=== PATIENT | male | born 1965 | race Caucasian/White ===

== ENCOUNTER 2018-03-08 10:49 | Emergency (ER) | payer OTHER ==
[2018-03-08 11:04] VITALS: TEMP 97.6; O2SAT 98
--- NOTE | 2018-03-08 11:51 | RAD ---
Date of service: 03/08/2018 PROCEDURE: Right Index finger radiographs. HISTORY: puncture with glass, r/o FB COMPARISON: None. TECHNIQUE: AP radiograph of the right hand, as well as spot oblique and lateral images of index finger were obtained. FINDINGS: RIGHT INDEX FINGER: An 2 x 1 mm tiny osseous avulsion fracture fragment is volarly displaced - 2nd proximal interphalangeal joint level- specific donor site -not appreciated JOINTS: Normal. SOFT TISSUES: Regional soft tissue swell OTHER FINDINGS: None. IMPRESSION: An 2 x 1 mm tiny osseous avulsion fracture fragment is volarly displaced - 2nd proximal interphalangeal joint level- specific donor site -not appreciated
[2018-03-08] MEDS ORDERED: Amoxicillin-Clav 875-125 mg Tab PO STA (12:11)
--- NOTE | 2018-03-08 12:11 | C.PDOC ---
History Of Present Illness 52 y/o male presents to the ED for evaluation of a wound to the right 2nd digit , sustained this morning. Patient states he was at work when the finger was punctured with glass. He complains of swelling and redness near the site and reports difficulty when bending the finger. Tetanus is up to date. Otherwise patient denies any numbness, tingling, or focal weakness. Time Seen by Provider: 03/08/18 11:13 Chief Complaint (Nursing): Upper Extremity Problem/Injury History Per: Patient History/Exam Limitations: no limitations Onset/Duration Of Symptoms: Hrs Current Symptoms Are (Timing): Still Present Past Medical History Reviewed: Historical Data, Nursing Documentation, Vital Signs Vital Signs: Last Vital Signs Temp 97.6 F 03/08/18 11:02 Pulse 65 03/08/18 11:02 Resp 18 03/08/18 11:02 BP 117/78 03/08/18 11:02 Pulse Ox 98 03/08/18 12:19 - Medical History PMH: No Chronic Diseases Other Surgeries: Left hand surgery Family History: States: Unknown Family Hx - Social History Hx Tobacco Use: No (Quit 3 years ago) Hx Alcohol Use: No Hx Substance Use: No - Immunization History Hx Tetanus Toxoid Vaccination: Yes (january 2018) Hx Influenza Vaccination: No Hx Pneumococcal Vaccination: No Review Of Systems Except As Marked, All Systems Reviewed And Found Negative. Musculoskeletal: Positive for: Hand Pain (redness, swelling, pain to right 2nd finger) Skin: Positive for: Lesions (puncture wound) Neurological: Negative for: Weakness, Numbness, Incoordination Physical Exam - Physical Exam Appears: Non-toxic, No Acute Distress Skin: Warm, Dry Head: Atraumatic, Normacephalic Eye(s): bilateral: Normal Inspection Extremity: Capillary Refill (less than 2 sec), No Deformity, Swelling (mild swelling over the proximal phalanx of right 2nd digit), Other (Puncture wound noted to palmar surface of right 2nd digit proximal phalanx, no active bleeding , (+) tender to palpation, with pain on flexion of digit) Pulses: Left Radial: Normal, Right Radial: Normal Neurological/Psych: Oriented x3, Normal Speech ED Course And Treatment O2 Sat by Pulse Oximetry: 98 (RA) Pulse Ox Interpretation: Normal - Other Rad X-Ray Right 2nd Digit X-Ray: Viewed By Me, Read By Radiologist Interpretation: Accession No. : [id number]. Patient Name / ID : PARI ROBLERO / [id number]. Exam Date : 03/08/2018 11:36:36 ( Approved ). Study Comment : Sex / Age : M / 52Y. Creator : Toya Oh V. Dictator : Toya Oh V. Perfume And Toilet Water Maker : Surgical Physician Assistant : Toya Oh V. Approver2 : Report Date : 03/08/2018 11:49:22. My Comment : . Date of service: 03/08/2018. PROCEDURE: Right Index finger radiographs. HISTORY: puncture with glass, r/o FB. COMPARISON: None. TECHNIQUE: AP radiograph of the right hand, as well as spot oblique and lateral images of index finger were obtained. FINDINGS: RIGHT INDEX FINGER: An 2 x 1 mm tiny osseous avulsion fracture fragment is volarly displaced - 2nd proximal interphalangeal joint level- specific donor site -not appreciated. JOINTS: Normal. SOFT TISSUES: Regional soft tissue swell. OTHER FINDINGS: None. IMPRESSION: An 2 x 1 mm tiny osseous avulsion fracture fragment is volarly displaced - 2nd proximal interphalangeal joint level- specific donor site -not appreciated Progress Note: X-ray taken of right hand 2nd digit. X-ray is suggestive of possible foreign body. Informed patient of x-ray results. Wound care provided with sterile dressing applied. Patient treated with first dose of PO Augmentin in the ED. Counseled regarding diagnosis and the importance of follow up with hand specialist for further evaluation. Disposition - Disposition Referrals: Rd Negron MD [Staff Provider] - [facility] [Outside] Disposition: HOME/ ROUTINE Disposition Time: 12:20 Condition: STABLE Additional Instructions: Follow up with PMD/ Hand specialist within 1-2 days. Return to ED if feel worse. Prescriptions: Amoxicillin/Clavulanate [Augmentin 875 MG-125 MG] 1 tab PO BID #14 tab Instructions: Wound Care (DC) Forms: [facility] (Cuban), Work Excuse Print Language: FRISIAN - Clinical Impression Clinical Impression: Puncture wound - PA / INDUST[employer] AND HEALTH MANAGER / Resident Statement MD/DO has reviewed & agrees with the documentation as recorded. - Scribe Statement The provider has reviewed the documentation as recorded by the Scribe (Ketty Beth) All medical record entries made by the Scribe were at my direction and personally dictated by me. I have reviewed the chart and agree that the record accurately reflects my personal performance of the history, physical exam, medical decision making, and the department course for this patient. I have also personally directed, reviewed, and agree with the discharge instructions and disposition.
[2018-03-08] MEDS ORDERED: Amoxicillin-Clav 875-125 mg Tab PO ONE (12:17)
[2018-03-08 12:36] VITALS: BP 123/79; PULSE 68; RESP 16
== END 2018-03-08 12:36 | disposition home or self-care (01) ==
LOC: C.ER 10:49
DX: S61.230A Puncture wound without foreign body of right index finger without damage to nail, initial encounter (principal); W25.XXXA Contact with sharp glass, initial encounter; Y99.0 Civilian activity done for income or pay